=== PATIENT | female | born 1955 | race Caucasian/White ===

== ENCOUNTER 2016-07-03 15:09 | Inpatient (IN) | payer OTHER ==
[2016-07-03] MEDS ORDERED: ALBUTEROL/IPRATROPIUM 2.5/0.5 MG 3 ML/EACH DOSE ONE (15:26)
[2016-07-03 15:50] LABS: BASO # 0.1 K/mm3 (0.0-0.2); BASO % 0.5 % (0.2-1.0); EOS # 0.2 (0.0-0.5); EOS % 2.2 % (0.9-2.9); HEMATOCRIT 47.2 % (37.0-47.0); HEMOGLOBIN 14.5 gm/l (12.0-16.0); IMM NEUT # 0.1 K/mm3 (0-0.2); IMM NEUT% 0.6 % (0-1); LYMPH # 2.9 (1.0-4.8); LYMPH % 26.4 % (15-45); MEAN CELL VOLUME 92.7 fl (81.0-99.0); MEAN CORPUSCULAR HEMOGLOBIN 28.5 pg (27.0-31.0); MEAN CORPUSCULAR HGB CONC 30.7 g/dl (33.0-37.0); MEAN PLATELET VOLUME 10.1 fl (7.4-10.4); MONO # 0.7 (0.0-0.8); MONO % 6.7 % (4-12); NEUT % 63.6 % (43-75); PLATELET COUNT 216 K/mm3 (130-400); RED CELL DISTRIBUTION WIDTH 14.6 % (11.5-14.5)
[2016-07-03 16:04] LABS: TROPONIN I < 0.01 ng/ml (0.0-0.06)
[2016-07-03 16:09] LABS: CKMB ISOENZYME 1.1 ng/ml (0.6-6.3)
--- NOTE | 2016-07-03 16:17 | RAD ---
CHEST - 2 VIEWS COMPARISON: Chest 2 views, 01/05/2016 HISTORY: Dyspnea and cough FINDINGS: Views: Frontal and lateral chest Lungs: Scattered opacities in the middle third and lower third of the left lung. Heart and vessels: Cardiomegaly. Trachea and bronchi: Normal Mediastinum and kevyn: Normal Costophrenic sulci: Normal Chest wall and bones: Normal. Upper abdomen: Normal Neck: Partially metallic medical records technician projects over the midline at the inferior neck. IMPRESSION: Infiltrates in the middle third and lower third of left lung, evidence of pneumonia.
[2016-07-03] MEDS ORDERED: AZITHROMYCIN 500 MG VIAL ONE (16:42)
[2016-07-03] MEDS ORDERED: METHYLPRED SOD SUCCINATE 125 MG VIAL ONE (16:42)
[2016-07-03] MEDS ORDERED: SODIUM CHLORIDE 0.9% 250 ML IV ONE (16:43)
[2016-07-03] MEDS ORDERED: CEFTRIAXONE 1 GRAM DUPLEX 50 ML IV ONE (16:43)
[2016-07-03 16:58] LABS: ALB/GLOB RATIO 1.2 (>1.0); CALCIUM 9.5 mg/dL (8.6-10.3)
[2016-07-03] MEDS ORDERED: BLISTEX LIPSTICK 1 EACH TP PRN (18:30)
[2016-07-03] MEDS ORDERED: BISACODYL 5 MG TABLET.EC PO PRN (18:30)
[2016-07-03] MEDS ORDERED: BISACODYL 10 MG SUP PR PRN (18:30)
[2016-07-03] MEDS ORDERED: MAGNESIUM HYDROXIDE 30 ML UDCUP PO PRN (18:30)
[2016-07-03] MEDS ORDERED: ALBUTEROL NEB 2.5 MG/3 ML VIAL.NEB NEB PRN (18:30)
[2016-07-03] MEDS ORDERED: MENTHOL/CETYLPYRD 1 EACH LOZENGE PO PRN (18:30)
[2016-07-03 18:43] VITALS: BMI 43.7
[2016-07-03] MEDS ORDERED: PSEUDOEPHEDRINE HCL 30 MG TABLET PO PRN (19:16)
[2016-07-03] MEDS ORDERED: NITROGLYCERIN 0.4 MG/TAB.SUBL BOT SL PRN (19:16)
[2016-07-03] MEDS: ISOSORBIDE MONONITRATE 60 MG TAB.SR PO SCH (20:51)
[2016-07-03] MEDS: ENOXAPARIN SODIUM 40 MG/0.4 ML SYRINGE SUB-Q SCH (20:52)
[2016-07-03] MEDS: ALBUTEROL/IPRATROPIUM 2.5/0.5 MG 3 ML/EACH DOSE NEB SCH (21:10)
[2016-07-03] MEDS: INSULIN ASPART (DOSE) 100 UNITS/1 ML SUB-Q PRN (21:15)
[2016-07-04] MEDS: DOCUSATE SODIUM 100 MG CAPSULE PO SCH ×3 (00:43→20:59)
[2016-07-04 05:19] LABS: ABSOLUTE NEUTROPHIL COUNT 7.2 K/mm3 (1.8-7.7); BASO % 0.3 % (0.2-1.0); EOS % 0.1 % (0.9-2.9); HEMATOCRIT 43.8 % (37.0-47.0); HEMOGLOBIN 13.6 gm/l (12.0-16.0); IMM NEUT # 0.1 K/mm3 (0-0.2); LYMPH # 1.6 (1.0-4.8); LYMPH % 17.6 % (15-45); MEAN CELL VOLUME 90.9 fl (81.0-99.0); MEAN CORPUSCULAR HEMOGLOBIN 28.2 pg (27.0-31.0); MEAN CORPUSCULAR HGB CONC 31.1 g/dl (33.0-37.0); MEAN PLATELET VOLUME 10.1 fl (7.4-10.4); MONO # 0.2 (0.0-0.8); PLATELET COUNT 225 K/mm3 (130-400); RED CELL DISTRIBUTION WIDTH 14.2 % (11.5-14.5)
[2016-07-04 05:38] LABS: CALCIUM 9.3 mg/dL (8.6-10.3)
--- NOTE | 2016-07-04 06:49 | HP ---
Scarlet Rahman [id number] DATE: 07/03/2016 CHIEF COMPLAINT: Dyspnea. HISTORY OF PRESENT ILLNESS: The patient is a 60-year-old female with a one week history of cough. She was seen by her primary care provider about a week ago and was prescribed a Z-Lorne which she finished, but her symptoms failed to improved. She reports her cough is productive of clear phlegm. She has had some wheezing and some substernal chest pain with a cough worse with deep breathing, which is unlike her usual angina pain. She was evaluated in the emergency department and found to have oxygen saturations down to 78% on room air. She eventually stabilized on 4 liters of oxygen by nasal cannula. REVIEW OF SYSTEMS: Negative for any documented fever. She reports hot flashes which are chronic. She has had some chronic nasal congestion. She denies earache. She has had the cough and dyspnea as I mentioned with wheezing. She has had no orthopnea. No lower extremity edema. She denies any nausea, vomiting, abdominal pain, diarrhea, or constipation. She denies any arthralgias. No headaches, fainting, blackouts, or seizures. No urinary complaints. Her review of systems is otherwise negative. PAST MEDICAL HISTORY: Significant for chronic essential hypertension, she states she has been under treatment for about a year for this. She has adult onset diabetes also diagnosed about a year ago on oral medications. She reports a history of coronary artery disease and has been followed by [facility]. She had a myocardial perfusion study in December of this year showing a fixed defect in the anterior wall, but no reversible ischemia. Her ejection fraction was 56% at that time. She since had a coronary angiogram, the results are not available. She has chronic angina, but has only used her nitroglycerin about once a month, it has improved with long acting nitrates. She is followed by [facility]. She has a history of asthma as a child, moderate persistent asthma. She has a history of chronic respiratory failure on home oxygen therapy at 2.5 liters by nasal cannula and obstructive sleep apnea on CPAP therapy set a 9 cm of water. She has a history of morbid obesity which complaints her care. She has had a history of some chronic depression, which is stable on medications. She denies any other chronic medical problems. PAST SURGICAL HISTORY: Significant for an angiogram sometime in the last year since December at [facility], results not available, followed by [place]. She has had a prior lumbar spine surgery x2 and C-spine surgery X1, details not available. She has had right elbow surgery for calcification in the joint in 1977 and a umbilical hernia repair by Dr. Albert Mondragon back in 2012. She had a colonoscopy in March 2012 with hyperplastic polyps removed. Also she had a tonsillectomy as a child. ALLERGIES: DOCUMENTED TO PENICILLIN, CODEINE, AND NIACIN. CURRENT MEDICATIONS: Consist of: 1. Amlodipine 10 mg daily. 2. Januvia 100 mg daily. 3. Lopressor 50 mg once daily. 4. Amaryl 1 mg daily. 5. Sudafed 30 mg every 6 hours as needed for nasal congestion. 6. Isosorbide mononitrate extended release 120 mg twice a day. 7. Enteric coated aspirin 325 mg daily. 8. Albuterol meter dose inhaler 1 to 2 puffs every 4 hours as needed for wheezing. 9. Metformin 1000 mg twice daily. 10. Lexapro 20 mg daily. 11. Nitroglycerin 0.4 mg sublingual every 5 minutes as needed for chest pain. 12. Singulair 10 mg daily. FAMILY HISTORY: Significant for a father with a myocardial infarction at the age of 62. Her mother of unknown causes at the age of 63. Her brother had coronary artery disease and lymphoma it sounds like. SOCIAL HISTORY: Patient is . She is a former smoker of about 30 pack years. She quit in the year 1999. She denies alcohol use. She drinks about 3 cups of coffee a day. She has one adopted son. Her primary care provider is Dr. Zaki Hayes. PHYSICAL EXAMINATION: VITAL SIGNS: Weight is 108.4 kg, body mass index is 43.7, temperature is 98.4, pulse is 91, blood pressure 137/79, respirations 27, oxygen saturations are 88% on 5 liters by nasal cannula. GENERAL: This is an obese female who is in no acute distress speaking in full sentences. HEENT: Shows moist pink oral mucosa. NECK: Supple without lymphadenopathy, thyromegaly, or jugular venous distention. LUNGS: Lungs sounds are diminished throughout with some scattered rhonchi and occasional expiratory wheezes. CARDIOVASCULAR: Reveals a regular rate and rhythm without a murmur. ABDOMEN: Obese, soft, nontender, nondistended with positive bowel sounds. PELVIC: Deferred. RECTAL: Deferred. EXTREMITIES: Show no peripheral edema. SKIN: Warm, dry, and intact. NEURO: Nonfocal. She is alert and oriented x3. LABORATORY STUDIES: Show a white count elevated at 11,000, hemoglobin is 14.5, platelet count is 216,000. Lactate is normal at 1.2. Chemistry profile shows a sodium 139, potassium 3.9, carbon dioxide 37, BUN 12, creatinine 0.6, glucose 124. Liver function tests are normal. Cardiac enzymes are negative. Urinalysis was not performed. DIAGNOSTICS: Chest x-ray shows infiltrates in the middle third and lower third of the left lung. There is cardiomegaly. ASSESSMENT AND PLAN: Patient has community acquired bacterial pneumonia. She failed treatment with Zithromax. She is having worsening dyspnea symptoms. She has acute on chronic respiratory failure. She had chronic obstructive sleep apnea treated with CPAP therapy. She has morbid obesity which complaints her care. She has a history of coronary artery disease with stable angina involving the pamunkey vessels. She has adult onset diabetes not on insulin. She has chronic essential hypertension. She is admitted to the intermediate care unit due to her significant hypoxia. She is going to be treated with Rocephin and Zithromax. She will get albuterol and DuoNeb treatments as needed. Will consider prednisone if her wheezing is worsening. Blood cultures are pending. She will be put on sliding scale NovoLog and I will continue her usual medications except for the metformin. Would like to confirm her isosorbide dose as it is usually a once a day dosing and she states she is taking twice daily. [facility] closed. The list from Dr. Hayes's office did not indicate the frequency of the dosing. Deep thromboembolism risk is moderate and prophylaxis has been prescribed in the form of Lovenox. She has had some chronic depression, stable on Lexapro, will continue this. Further treatment and recommendations will depend on her hospital course. Will work to determine if she has had a pneumonia vaccine, if not she will be vaccinated. Also work to determine if she has had the flu vaccination, if not she will be offered a vaccination. JOB: [id number] CC: Dr. Zaki Hayes
[2016-07-04] MEDS ORDERED: GLIMEPIRIDE 2 MG TABLET PO SCH (09:00)
[2016-07-04] MEDS ORDERED: PNEUMOCOCCAL 23-VAL P-SAC VAC 0.5 ML VIAL IM V ONE (09:00)
[2016-07-04] MEDS: ALBUTEROL/IPRATROPIUM 2.5/0.5 MG 3 ML/EACH DOSE NEB SCH ×4 (10:36→20:35)
[2016-07-04] MEDS: MONTELUKAST SODIUM 10 MG TABLET PO SCH (10:47)
[2016-07-04] MEDS: ASPIRIN (ENTERIC COATED) 325 MG TABLET.EC PO SCH (10:47)
[2016-07-04] MEDS: AMLODIPINE BESYLATE 5 MG TABLET PO SCH (10:48)
[2016-07-04] MEDS: SITAGLIPTIN PHOSPHATE 100 MG TABLET PO SCH (10:48)
[2016-07-04] MEDS: ISOSORBIDE MONONITRATE 60 MG TAB.SR PO SCH ×2 (10:48→20:58)
[2016-07-04] MEDS: METOPROLOL TARTRATE 50 MG TABLET PO SCH (10:48)
[2016-07-04] MEDS: INSULIN ASPART (DOSE) 100 UNITS/1 ML SUB-Q PRN (10:53)
--- NOTE | 2016-07-04 11:15 | PDOC43 ---
- Subjective Chief Complaint: Hypoxia, CAP Patient reports feeling much better today. Currently on 5L NC, sats ranging from 80-95%. Was able to eat breakfast. No new respiratory c/o. Bothered some by ICDs, but otherwise ok. No angina (this week). - Objective Vital Signs Temperature 97.9 F 07/04/16 09:11 Pulse Rate 95 07/04/16 09:11 Respiratory Rate 21 07/04/16 09:11 Blood Pressure 153/90 07/04/16 09:11 O2 Saturation by Pulse Oximetry 91 07/04/16 09:11 Oxygen Delivery Method CPAP Oxygen Flow Rate 5 Vital Signs Last 12 Hours Temp Pulse Resp BP Pulse Ox 07/04/16 09:11 97.9 F 95 21 153/90 91 07/04/16 04:00 96.9 F 100 22 137/86 88 07/04/16 03:00 19 Intake and Output 07/02/16 07/03/16 07/04/16 23:59 23:59 23:59 Intake Total 1000 Balance 1000 General: Alert, Cooperative, Other (loose cough noted), No Acute Distress Lungs: Other (decreased air movement bilat. Some rhonchi, sl wheezing noted bilat.) Cardiovascular: Regular Rate and Rhythm Abdomen: Soft, Normal Bowel Sounds, Non-Distended, Other (central obesity), No Tenderness, No Rebounding Extremities: No Edema, No Tenderness Skin: Normal Color Neurological: Normal Speech Psych/Mental Status: Normal Affect Laboratory 07/04/16 05:10 07/04/16 05:10 07/04/16 07/04/16 07/03/16 10:45 05:10 21:07 MCHC 31.1 L Estimated GFR 126 H POC Capillary Glucose 155 H 241 H 07/03/16 18:43 MCHC Estimated GFR POC Capillary Glucose 111 H Current Medications: Current meds reviewed in EMR. Active Medications Acetaminophen (Tylenol) 650 mg PO Q6H PRN PRN Reason: Pain or Temperature > 100.5 F Albuterol Sulfate (Ventolin Inhalation Solution (Dose)) 2.5 mg NEB Q4H PRN PRN Reason: Wheezing Albuterol/Ipratropium (Duoneb) 3 ml NEB QID [facility] Last Admin: 07/04/16 10:36 Dose: 3 ml Amlodipine Besylate (Norvasc) 10 mg PO DAILY [facility] Last Admin: 07/04/16 10:48 Dose: 10 mg Aspirin (Ecotrin) 325 mg PO DAILY [facility] Last Admin: 07/04/16 10:47 Dose: 325 mg Benzocaine/Menthol (Cepacol) 1 each PO PRN PRN PRN Reason: Sore Throat Bisacodyl (Dulcolax) 10 mg [place] DAILY PRN PRN Reason: Constipation Bisacodyl (Dulcolax) 5 mg PO DAILY PRN PRN Reason: Constipation Docusate Sodium (Colace) 100 mg PO BID [facility] Last Admin: 07/04/16 10:48 Dose: 100 mg Enoxaparin Sodium (Lovenox) 40 mg SUB-Q Q24H [facility] Last Admin: 07/03/16 20:52 Dose: 40 mg Escitalopram Oxalate (Lexapro) 20 mg PO DAILY [facility] Glimepiride (Amaryl) 1 mg PO QAM [facility] Last Admin: 07/04/16 10:49 Dose: 1 mg Azithromycin 500 mg/ Sodium (Chloride) 250 mls @ 250 mls/hr IV Q24H [facility] Stop: 07/05/16 17:59 Ceftriaxone Sodium/Dextrose 1 (g/ Premix (D5W) 50 ml) 50 mls @ 100 mls/hr IV Q24H [facility] Sodium Chloride (Sodium Chloride 0.9%) 100 mls @ 25 mls/hr IV PRN PRN PRN Reason: Flush Insulin Aspart (Novolog (Dose)) 0 units SUB-Q WM/BEDTIME PRN; Protocol PRN Reason: Blood Sugar > Last Admin: 07/04/16 10:53 Dose: 3 units Isosorbide Mononitrate (Imdur) 120 mg PO BID [facility] Last Admin: 07/04/16 10:48 Dose: 120 mg Magnesium Hydroxide (Milk Of Magnesia) 30 ml PO DAILY PRN PRN Reason: Constipation Metoprolol Tartrate (Lopressor) 50 mg PO DAILY [facility] Last Admin: 07/04/16 10:48 Dose: 50 mg Montelukast Sodium (Singulair) 10 mg PO DAILY [facility] Last Admin: 07/04/16 10:47 Dose: 10 mg Nitroglycerin (Nitrostat) 0.4 mg SL Q5M PRN PRN Reason: Chest Pain Petrolatum/Paraffin/Mineral Oil (Blistex) 1 each TP PRN PRN PRN Reason: Dry and/or chapped lips Pseudoephedrine HCl (Sudafed) 30 mg PO Q6H PRN PRN Reason: Congestion Sitagliptin Phosphate (Januvia) 100 mg PO DAILY [facility] Last Admin: 07/04/16 10:48 Dose: 100 mg Sodium Chloride (Normal Saline 10ml Flush) 10 ml IV Q8HR [facility] Last Admin: 07/04/16 10:48 Dose: 10 ml Sodium Chloride (Normal Saline 10ml Flush) 10 ml IV PRN PRN - Problems: Assessment/Plan (1) Community acquired bacterial pneumonia Status: AcuteAssessment/Plan: Present on admit. With respiratory failure with hypoxia, needing O2, CPAP; but improved today. Organism not identified yet. Blood cultures negative so far. On Rocephin, azithromycin using CPAP, O2 as well (doesn't use O2 at home normally). Plan continue in IMCU for now with degree of hypoxia. (2) Sleep apnea Qualifiers: Sleep apnea type: unspecified type Qualifier Code: (G47.30) Sleep apnea , unspecified Status: ChronicAssessment/Plan: Uses CPAP at home at night. (3) Diabetes mellitus, type II Qualifiers: Diabetes mellitus complication status: with unspecified complications Diabetes mellitus chcf insulin use: without hanger off use Qualifier Code: (E11.8) Type 2 diabetes mellitus with unspecified complications Status : ChronicAssessment/Plan: Glucose 111-242 recently. BG may be raised by dose of Solu Medrol (dosed x 1). Continue Januvia, Novolog SS. (4) Asthma Qualifiers: Asthma severity: unspecified severity Asthma complication type: uncomplicated Qualifier Code: (J45.909) Unspecified asthma, uncomplicated Status: AcuteAssessment/Plan: Continue meds (montelukast, duoneb) Did get dose of steroids in ED, but currently respiratory status felt to be more due to CAP rather than acute worsening of asthma. (5) History of angina Status: ChronicAssessment/Plan: Continue meds (Imdur, metoprolol, amlodipine); troponin <0.01. No angina reported at this time. Did have some last week. (6) Chronic neck and back pain Status: ChronicAssessment/Plan: Not otherwise addressed. VTE Prophylaxis: Enoxaparin Disposition: Anticipate return to home eventually. Will plan to stay in IMCU while needing CPAP to maintain oxygenation.
[2016-07-04] MEDS ORDERED: SODIUM CHLORIDE 0.9% FLUSH 10 ML ONE (16:10)
[2016-07-04] MEDS ORDERED: IV START KIT ONE (16:10)
[2016-07-04] MEDS ORDERED: PUMP TUBING ONE (16:29)
[2016-07-04] MEDS: SODIUM CHLORIDE 0.9% 100 ML IV PRN (16:43)
[2016-07-04] MEDS: CEFTRIAXONE 1 GRAM DUPLEX 1 G in Premix (D5W) 50 ml 1 EACH IV SCH (16:44)
[2016-07-04] MEDS: AZITHROMYCIN 500 MG in SODIUM CHLORIDE 0.9% 250 ML IV SCH (17:36)
[2016-07-04] MEDS: ENOXAPARIN SODIUM 40 MG/0.4 ML SYRINGE SUB-Q SCH (20:58)
[2016-07-05 07:36] LABS: ABSOLUTE NEUTROPHIL COUNT 6.8 K/mm3 (1.8-7.7); BASO # 0.1 K/mm3 (0.0-0.2); BASO % 0.5 % (0.2-1.0); EOS # 0.2 (0.0-0.5); EOS % 1.3 % (0.9-2.9); HEMATOCRIT 45.6 % (37.0-47.0); IMM NEUT # 0.1 K/mm3 (0-0.2); IMM NEUT% 0.4 % (0-1); LYMPH # 3.8 (1.0-4.8); LYMPH % 32.8 % (15-45); MEAN CELL VOLUME 92.5 fl (81.0-99.0); MEAN CORPUSCULAR HEMOGLOBIN 28.4 pg (27.0-31.0); MEAN CORPUSCULAR HGB CONC 30.7 g/dl (33.0-37.0); MEAN PLATELET VOLUME 9.6 fl (7.4-10.4); MONO # 0.8 (0.0-0.8); MONO % 6.6 % (4-12); NEUT % 58.4 % (43-75); PLATELET COUNT 235 K/mm3 (130-400); RED CELL DISTRIBUTION WIDTH 14.7 % (11.5-14.5)
[2016-07-05 07:59] LABS: CALCIUM 9.1 mg/dL (8.6-10.3)
[2016-07-05 08:04] LABS: VENOUS BLOOD GAS HCO3 34.3 mmol/L (22.0-27.0)
[2016-07-05 08:05] LABS: VENOUS BLOOD GAS BASE EXCESS 6.5 mmol/L (-2.0-2.0)
--- NOTE | 2016-07-05 08:37 | PDOC43 ---
- Subjective Chief Complaint: Hypoxia, CAP RN reports pt improving. Is on 5L NC and sats about 91%. Gets SOB with activity. Nestor PO well. Using CPAP at night (for sleep apnea). Pt reports appetite good, ate well this am. Cough productive, getting better. No GI c/o. Notes limited activity tolerance. - Objective Vital Signs Temperature 98.0 F 07/05/16 07:07 Pulse Rate 89 07/05/16 07:07 Respiratory Rate 22 07/05/16 07:19 Blood Pressure 136/72 07/05/16 07:07 O2 Saturation by Pulse Oximetry 92 07/05/16 08:00 Oxygen Delivery Method Nasal Cannula Oxygen Flow Rate 5 Vital Signs Last 12 Hours Temp Pulse Resp BP Pulse Ox 07/05/16 08:00 92 07/05/16 07:19 22 92 07/05/16 07:15 22 07/05/16 07:07 98.0 F 89 22 136/72 89 07/05/16 04:00 23 07/05/16 03:00 87 21 142/73 90 07/05/16 00:00 23 07/04/16 23:37 83 23 123/68 94 07/04/16 20:35 87 22 90 Intake and Output 07/03/16 07/04/16 07/05/16 23:59 23:59 23:59 Intake Total 1580 1300 Balance 1580 1300 General: Alert, Cooperative, No Acute Distress HEENT: Atraumatic Lungs: Other (fair air movement bilat. Coarse wheezing bilat) Cardiovascular: Regular Rate and Rhythm Abdomen: Soft, Normal Bowel Sounds, Non-Distended Extremities: No Edema Skin: Normal Color Neurological: No Normal Speech Psych/Mental Status: Normal Affect, Normal Mood Laboratory 07/05/16 07:30 07/05/16 07:30 07/05/16 07/05/16 07/05/16 07:30 07:18 05:00 MCHC 30.7 L RDW 14.7 H VBG O2 Saturation 91.5 H VBG Base Excess 6.5 H Mixed VBG pCO2 62.7 H Mixed VBG pO2 61.6 H Mixed VBG HCO3 34.3 H Estimated GFR 102 H POC Capillary Glucose 115 H 07/04/16 07/04/16 22:04 10:45 MCHC RDW VBG O2 Saturation VBG Base Excess Mixed VBG pCO2 Mixed VBG pO2 Mixed VBG HCO3 Estimated GFR POC Capillary Glucose 114 H 155 H Current Medications: Current meds reviewed in EMR. Active Medications Acetaminophen (Tylenol) 650 mg PO Q6H PRN PRN Reason: Pain or Temperature > 100.5 F Albuterol Sulfate (Ventolin Inhalation Solution (Dose)) 2.5 mg NEB Q4H PRN PRN Reason: Wheezing Albuterol/Ipratropium (Duoneb) 3 ml NEB QID [facility] Last Admin: 07/04/16 20:35 Dose: 3 ml Amlodipine Besylate (Norvasc) 10 mg PO DAILY [facility] Last Admin: 07/04/16 10:48 Dose: 10 mg Aspirin (Ecotrin) 325 mg PO DAILY [facility] Last Admin: 07/04/16 10:47 Dose: 325 mg Benzocaine/Menthol (Cepacol) 1 each PO PRN PRN PRN Reason: Sore Throat Bisacodyl (Dulcolax) 10 mg [place] DAILY PRN PRN Reason: Constipation Bisacodyl (Dulcolax) 5 mg PO DAILY PRN PRN Reason: Constipation Docusate Sodium (Colace) 100 mg PO BID [facility] Last Admin: 07/04/16 20:59 Dose: Not Given Enoxaparin Sodium (Lovenox) 40 mg SUB-Q Q24H [facility] Last Admin: 07/04/16 20:58 Dose: 40 mg Escitalopram Oxalate (Lexapro) 20 mg PO DAILY [facility] Glimepiride (Amaryl) 1 mg PO QAM [facility] Azithromycin 500 mg/ Sodium (Chloride) 250 mls @ 250 mls/hr IV Q24H [facility] Stop: 07/05/16 17:59 Last Admin: 07/04/16 17:36 Dose: 250 mls/hr Ceftriaxone Sodium/Dextrose 1 (g/ Premix (D5W) 50 ml) 50 mls @ 100 mls/hr IV Q24H [facility] Last Admin: 07/04/16 16:44 Dose: 100 mls/hr Sodium Chloride (Sodium Chloride 0.9%) 100 mls @ 25 mls/hr IV PRN PRN PRN Reason: Flush Last Admin: 07/04/16 16:43 Dose: 25 mls/hr Insulin Aspart (Novolog (Dose)) 0 units SUB-Q WM/BEDTIME PRN; Protocol PRN Reason: Blood Sugar > Last Admin: 07/04/16 10:53 Dose: 3 units Isosorbide Mononitrate (Imdur) 120 mg PO BID [facility] Last Admin: 07/04/16 20:58 Dose: 120 mg Magnesium Hydroxide (Milk Of Magnesia) 30 ml PO DAILY PRN PRN Reason: Constipation Metoprolol Tartrate (Lopressor) 50 mg PO DAILY [facility] Last Admin: 07/04/16 10:48 Dose: 50 mg Montelukast Sodium (Singulair) 10 mg PO DAILY [facility] Last Admin: 07/04/16 10:47 Dose: 10 mg Nitroglycerin (Nitrostat) 0.4 mg SL Q5M PRN PRN Reason: Chest Pain Petrolatum/Paraffin/Mineral Oil (Blistex) 1 each TP PRN PRN PRN Reason: Dry and/or chapped lips Pseudoephedrine HCl (Sudafed) 30 mg PO Q6H PRN PRN Reason: Congestion Sitagliptin Phosphate (Januvia) 100 mg PO DAILY [facility] Last Admin: 07/04/16 10:48 Dose: 100 mg Sodium Chloride (Normal Saline 10ml Flush) 10 ml IV Q8HR [facility] Last Admin: 07/05/16 06:18 Dose: Not Given Sodium Chloride (Normal Saline 10ml Flush) 10 ml IV PRN PRN Last Admin: 07/04/16 16:44 Dose: 30 ml - Problems: Assessment/Plan (1) Community acquired bacterial pneumonia Status: AcuteAssessment/Plan: Present on admit. With respiratory failure with hypoxia, needing O2 during day at 5L, CPAP at night; but continues to improve. Organism not identified yet. Blood cultures still negative On Rocephin, azithromycin Doesn't use O2 at home during day, uses 2.5 L with CPAP at night. (2) Sleep apnea Qualifiers: Sleep apnea type: unspecified type Qualifier Code: (G47.30) Sleep apnea , unspecified Status: ChronicAssessment/Plan: Uses CPAP at home at night with 2.5 L O2. (3) Diabetes mellitus, type II Qualifiers: Diabetes mellitus complication status: with unspecified complications Diabetes mellitus mcc insulin use: without mcc use Qualifier Code: (E11.8) Type 2 diabetes mellitus with unspecified complications Status : ChronicAssessment/Plan: Glucose 111-242 recently. BG may be raised by dose of Solu Medrol (dosed x 1). Continue Januvia, Novolog SS. (4) Asthma Qualifiers: Asthma severity: unspecified severity Asthma complication type: uncomplicated Qualifier Code: (J45.909) Unspecified asthma, uncomplicated Status: AcuteAssessment/Plan: Continue meds (montelukast, duoneb) Did get dose of steroids in ED, but currently respiratory status felt to be more due to CAP rather than acute worsening of asthma. (5) History of angina Status: ChronicAssessment/Plan: Continue meds (Imdur, metoprolol, amlodipine); troponin <0.01. No angina reported at this time. Did have some last week. BNP 23 today. (6) Chronic neck and back pain Status: ChronicAssessment/Plan: Not otherwise addressed. VTE Prophylaxis: Enoxaparin Disposition: Anticipate return to home eventually. Plan go to med/surg
[2016-07-05] MEDS: METOPROLOL TARTRATE 50 MG TABLET PO SCH (08:45)
[2016-07-05] MEDS: ALBUTEROL/IPRATROPIUM 2.5/0.5 MG 3 ML/EACH DOSE NEB SCH ×4 (08:45→20:06)
[2016-07-05] MEDS: ASPIRIN (ENTERIC COATED) 325 MG TABLET.EC PO SCH (08:45)
[2016-07-05] MEDS: ISOSORBIDE MONONITRATE 60 MG TAB.SR PO SCH ×2 (08:45→20:49)
[2016-07-05] MEDS: AMLODIPINE BESYLATE 5 MG TABLET PO SCH (08:46)
[2016-07-05] MEDS: MONTELUKAST SODIUM 10 MG TABLET PO SCH (08:46)
[2016-07-05] MEDS: SITAGLIPTIN PHOSPHATE 100 MG TABLET PO SCH (08:46)
[2016-07-05] MEDS: DOCUSATE SODIUM 100 MG CAPSULE PO SCH ×2 (08:46→20:49)
[2016-07-05] MEDS: GLIMEPIRIDE 1 MG TABLET PO SCH (09:17)
[2016-07-05 12:38] LABS: A1C-GLYCOHEMOGLOBIN 0.7 g/dl; HEMOGLOBIN-GLYCO 13.6 g/dl
[2016-07-05] MEDS ORDERED: PUMP TUBING ONE (16:40)
[2016-07-05] MEDS: SODIUM CHLORIDE 0.9% 100 ML IV PRN (16:58)
[2016-07-05] MEDS: CEFTRIAXONE 1 GRAM DUPLEX 1 G in Premix (D5W) 50 ml 1 EACH IV SCH (16:58)
[2016-07-05] MEDS: AZITHROMYCIN 500 MG in SODIUM CHLORIDE 0.9% 250 ML IV SCH (17:47)
[2016-07-05] MEDS ORDERED: SODIUM CHLORIDE 0.9% FLUSH 10 ML ONE (18:58)
[2016-07-05] MEDS ORDERED: IV START KIT ONE (18:58)
[2016-07-05] MEDS: ENOXAPARIN SODIUM 40 MG/0.4 ML SYRINGE SUB-Q SCH (20:49)
[2016-07-05] MEDS: MELATONIN 3 MG TABLET PO SCH (20:49)
[2016-07-06] MEDS: ACETAMINOPHEN 325 MG TABLET PO PRN (06:00)
[2016-07-06 06:52] LABS: BASO % 0.5 % (0.2-1.0); EOS # 0.2 (0.0-0.5); EOS % 2.3 % (0.9-2.9); HEMATOCRIT 45.4 % (37.0-47.0); HEMOGLOBIN 13.9 gm/l (12.0-16.0); IMM NEUT% 0.3 % (0-1); LYMPH # 1.9 (1.0-4.8); LYMPH % 21.5 % (15-45); MEAN CORPUSCULAR HEMOGLOBIN 28.5 pg (27.0-31.0); MEAN CORPUSCULAR HGB CONC 30.6 g/dl (33.0-37.0); MEAN PLATELET VOLUME 9.7 fl (7.4-10.4); MONO # 0.6 (0.0-0.8); NEUT % 68.4 % (43-75); PLATELET COUNT 233 K/mm3 (130-400); RED CELL DISTRIBUTION WIDTH 14.5 % (11.5-14.5)
[2016-07-06 07:12] LABS: ALB/GLOB RATIO 1.1 (>1.0); ALBUMIN 3.7 gm/dL (3.5-5.7)
[2016-07-06] MEDS: ALBUTEROL/IPRATROPIUM 2.5/0.5 MG 3 ML/EACH DOSE NEB SCH ×5 (07:44→20:18)
[2016-07-06] MEDS: METOPROLOL TARTRATE 50 MG TABLET PO SCH (09:13)
[2016-07-06] MEDS: ISOSORBIDE MONONITRATE 60 MG TAB.SR PO SCH ×2 (09:13→20:59)
[2016-07-06] MEDS: AMLODIPINE BESYLATE 5 MG TABLET PO SCH (09:13)
[2016-07-06] MEDS: MONTELUKAST SODIUM 10 MG TABLET PO SCH (09:13)
[2016-07-06] MEDS: DOCUSATE SODIUM 100 MG CAPSULE PO SCH ×2 (09:13→20:59)
[2016-07-06] MEDS: ESCITALOPRAM 20 MG TABLET PO SCH (09:13)
[2016-07-06] MEDS: GLIMEPIRIDE 1 MG TABLET PO SCH (09:14)
[2016-07-06] MEDS: ASPIRIN (ENTERIC COATED) 325 MG TABLET.EC PO SCH (09:14)
[2016-07-06] MEDS: SITAGLIPTIN PHOSPHATE 100 MG TABLET PO SCH (09:14)
[2016-07-06] MEDS: CEFTRIAXONE 1 GRAM DUPLEX 1 G in Premix (D5W) 50 ml 1 EACH IV SCH (16:05)
--- NOTE | 2016-07-06 16:29 | PDOC43 ---
- Subjective Chief Complaint: Hypoxia, CAP Patient reports doing well. No c/o, but still on O2. RN reports pt tolerated activity fairly well, but does desat, seems to recover well. No GI c/o. No other c/o. She reports she would be eager to go home. - Objective Vital Signs Temperature 98 F 07/06/16 12:00 Pulse Rate 75 07/06/16 12:54 Respiratory Rate 18 07/06/16 12:54 Blood Pressure 121/73 07/06/16 12:00 O2 Saturation by Pulse Oximetry 92 07/06/16 12:54 Oxygen Delivery Method Nasal Cannula Oxygen Flow Rate 3 Vital Signs Last 12 Hours Temp Pulse Resp BP Pulse Ox 07/06/16 12:54 75 18 92 07/06/16 12:00 98 F 78 20 121/73 95 07/06/16 08:30 97.6 F 107 20 117/83 92 07/06/16 07:44 94 18 91 07/06/16 06:01 96 Intake and Output 07/04/16 07/05/16 07/06/16 23:59 23:59 23:59 Intake Total 1580 3115 300 Output Total 1100 Balance 1580 3115 -800 General: Alert, Cooperative, No Acute Distress HEENT: Atraumatic Lungs: Other (wheezes bilat, fair air movement bilat.) Cardiovascular: Regular Rate and Rhythm Abdomen: Soft, Normal Bowel Sounds, Non-Distended Extremities: No Edema Skin: Normal Color Neurological: Normal Speech Psych/Mental Status: Normal Affect, Normal Mood Laboratory 07/06/16 06:30 07/06/16 06:30 07/06/16 07/06/16 07/05/16 07:08 06:30 20:44 MCHC 30.6 L Estimated GFR 126 H POC Capillary Glucose 122 H 116 H 07/05/16 17:01 MCHC Estimated GFR POC Capillary Glucose 124 H Current Medications: Current meds reviewed in EMR. Active Medications Acetaminophen (Tylenol) 650 mg PO Q6H PRN PRN Reason: Pain or Temperature > 100.5 F Last Admin: 07/06/16 06:00 Dose: 650 mg Albuterol Sulfate (Ventolin Inhalation Solution (Dose)) 2.5 mg NEB Q4H PRN PRN Reason: Wheezing Albuterol/Ipratropium (Duoneb) 3 ml NEB QID JON Last Admin: 07/06/16 12:54 Dose: 3 ml Amlodipine Besylate (Norvasc) 10 mg PO DAILY [facility] Last Admin: 07/06/16 09:13 Dose: 10 mg Aspirin (Ecotrin) 325 mg PO DAILY [facility] Last Admin: 07/06/16 09:14 Dose: 325 mg Benzocaine/Menthol (Cepacol) 1 each PO PRN PRN PRN Reason: Sore Throat Bisacodyl (Dulcolax) 10 mg AR DAILY PRN PRN Reason: Constipation Bisacodyl (Dulcolax) 5 mg PO DAILY PRN PRN Reason: Constipation Docusate Sodium (Colace) 100 mg PO BID [facility] Last Admin: 07/06/16 09:13 Dose: 100 mg Enoxaparin Sodium (Lovenox) 40 mg SUB-Q Q24H [facility] Last Admin: 07/05/16 20:49 Dose: 40 mg Escitalopram Oxalate (Lexapro) 20 mg PO DAILY [facility] Last Admin: 07/06/16 09:13 Dose: 20 mg Glimepiride (Amaryl) 1 mg PO QAM [facility] Last Admin: 07/06/16 09:14 Dose: 1 mg Ceftriaxone Sodium/Dextrose 1 (g/ Premix (D5W) 50 ml) 50 mls @ 100 mls/hr IV Q24H [facility] Last Admin: 07/06/16 16:05 Dose: 100 mls/hr Sodium Chloride (Sodium Chloride 0.9%) 100 mls @ 25 mls/hr IV PRN PRN PRN Reason: Flush Last Admin: 07/05/16 16:58 Dose: 25 mls/hr Insulin Aspart (Novolog (Dose)) 0 units SUB-Q WM/BEDTIME PRN; Protocol PRN Reason: Blood Sugar > Last Admin: 07/04/16 10:53 Dose: 3 units Isosorbide Mononitrate (Imdur) 120 mg PO BID [facility] Last Admin: 07/06/16 09:13 Dose: 120 mg Magnesium Hydroxide (Milk Of Magnesia) 30 ml PO DAILY PRN PRN Reason: Constipation Melatonin (Melatonin) 3 mg PO BEDTIME [facility] Last Admin: 07/05/16 20:49 Dose: 3 mg Metoprolol Tartrate (Lopressor) 50 mg PO DAILY [facility] Last Admin: 07/06/16 09:13 Dose: 50 mg Montelukast Sodium (Singulair) 10 mg PO DAILY [facility] Last Admin: 07/06/16 09:13 Dose: 10 mg Nitroglycerin (Nitrostat) 0.4 mg SL Q5M PRN PRN Reason: Chest Pain Petrolatum/Paraffin/Mineral Oil (Blistex) 1 each TP PRN PRN PRN Reason: Dry and/or chapped lips Pseudoephedrine HCl (Sudafed) 30 mg PO Q6H PRN PRN Reason: Congestion Sitagliptin Phosphate (Januvia) 100 mg PO DAILY [facility] Last Admin: 07/06/16 09:14 Dose: 100 mg Sodium Chloride (Normal Saline 10ml Flush) 10 ml IV Q8HR [facility] Last Admin: 07/06/16 16:06 Dose: 10 ml Sodium Chloride (Normal Saline 10ml Flush) 10 ml IV PRN PRN Last Admin: 07/04/16 16:44 Dose: 30 ml - Problems: Assessment/Plan (1) Community acquired bacterial pneumonia Status: AcuteAssessment/Plan: Present on admit. With respiratory failure with hypoxia, needing O2 during day at 3L, CPAP at night; but continues to improve. Organism not identified. Blood cultures negative On Rocephin, azithromycin Doesn't use O2 at home during day, uses 2.5 L with CPAP at night. (2) Sleep apnea Qualifiers: Sleep apnea type: unspecified type Qualifier Code: (G47.30) Sleep apnea , unspecified Status: ChronicAssessment/Plan: Uses CPAP at home at night with 2.5 L O2. Continue (3) Diabetes mellitus, type II Qualifiers: Diabetes mellitus complication status: with unspecified complications Diabetes mellitus billet grinder insulin use: without mcc use Qualifier Code: (E11.8) Type 2 diabetes mellitus with unspecified complications Status : ChronicAssessment/Plan: Laboratory Tests 07/05/16 07/05/16 07/05/16 12:27 17:01 20:44 Glucose POC Capillary Glucose 111 H 124 H 116 H 07/06/16 07/06/16 07/06/16 06:30 07:08 12:59 Glucose 150 H POC Capillary Glucose 122 H 80 BG had been raised by dose of Solu Medrol (dosed x 1), now better. Continue Januvia, Novolog SS. (4) Asthma Qualifiers: Asthma severity: unspecified severity Asthma complication type: uncomplicated Qualifier Code: (J45.909) Unspecified asthma, uncomplicated Status: AcuteAssessment/Plan: Continue meds (montelukast, duoneb) Did get dose of steroids in ED, but currently respiratory status felt to be more due to CAP rather than acute worsening of asthma. (5) History of angina Status: ChronicAssessment/Plan: Continue meds (Imdur, metoprolol, amlodipine); troponin <0.01. No angina reported at this time. Did have some last week. BNP 23 (6) Chronic neck and back pain Status: ChronicAssessment/Plan: Not otherwise addressed. VTE Prophylaxis: Enoxaparin Disposition: Anticipate return to home, possibly tomorrow, with supplemental O2 (has concentrator and O2 at home already).
[2016-07-06] MEDS: ENOXAPARIN SODIUM 40 MG/0.4 ML SYRINGE SUB-Q SCH (20:58)
[2016-07-06] MEDS: MELATONIN 3 MG TABLET PO SCH (20:59)
[2016-07-07] MEDS: ACETAMINOPHEN 325 MG TABLET PO PRN (01:53)
[2016-07-07] MEDS: ALBUTEROL/IPRATROPIUM 2.5/0.5 MG 3 ML/EACH DOSE NEB SCH ×2 (07:38→08:36)
[2016-07-07] MEDS: ESCITALOPRAM 20 MG TABLET PO SCH (09:04)
[2016-07-07] MEDS: GLIMEPIRIDE 1 MG TABLET PO SCH (09:04)
[2016-07-07] MEDS: METOPROLOL TARTRATE 50 MG TABLET PO SCH (09:04)
[2016-07-07] MEDS: SITAGLIPTIN PHOSPHATE 100 MG TABLET PO SCH (09:04)
[2016-07-07] MEDS: DOCUSATE SODIUM 100 MG CAPSULE PO SCH (09:05)
[2016-07-07] MEDS: AMLODIPINE BESYLATE 5 MG TABLET PO SCH (09:05)
[2016-07-07] MEDS: MONTELUKAST SODIUM 10 MG TABLET PO SCH (09:05)
[2016-07-07] MEDS: ASPIRIN (ENTERIC COATED) 325 MG TABLET.EC PO SCH (09:05)
[2016-07-07] MEDS: ISOSORBIDE MONONITRATE 60 MG TAB.SR PO SCH (09:05)
[2016-07-07] MEDS ORDERED: PUMP TUBING ONE (10:58)
[2016-07-07] MEDS ORDERED: CEFTRIAXONE 1 GRAM DUPLEX 1 G in Premix (D5W) 50 ml 1 EACH IV SCH (11:00)
[2016-07-07 11:47] VITALS: BP 123/78
--- NOTE | 2016-07-09 13:50 | DS ---
WILLOW RAHMAN [id number] ADMIT DATE: 07/03/2016 DISCHARGE DATE: 07/07/2016 ADMIT DIAGNOSES: 1. Community acquired pneumonia. 2. Acute on chronic renal failure with increased O2 requirement above her baseline. 3. Obstructive sleep apnea at baseline. 4. Morbid obesity complicating all care. OTHER CHRONIC MEDICAL PROBLEMS: Includin. Chronic coronary artery disease with chronic angina. 2. Diabetes. 3. Hypertension at baseline. DISCHARGE DIAGNOSES: 5. Community acquired pneumonia. 6. Acute on chronic renal failure with increased O2 requirement above her baseline. 7. Obstructive sleep apnea at baseline. 8. Morbid obesity complicating all care. OTHER CHRONIC MEDICAL PROBLEMS: Includin. Chronic coronary artery disease with chronic angina. 5. Diabetes. 6. Hypertension at baseline. LABORATORY DATA: All cultures remained negative. ADMIT HISTORY AND PHYSICAL: Please see Dr. Castro's note for details. Ms. Rahman is a 60-year-old female who presented to our emergency room with about a 1 week history of cough. She had been treated with a Z-Lorne as an outpatient the previous week with no improvement. In the emergency room, she was worked up and found to have evidence of a left sided pneumonia as well as increased hypoxia over her baseline. She was admitted to the Hospitalist service for further treatment. HOSPITAL COURSE: She was admitted and started Rocephin and azithromycin as well as supportive care. She did have significant oxygen requirements as well as her usual CPAP requirement at night. This did slowly improve. By the day of discharge, she was feeling very well and very anxious to go home. She had actually been feeling well for 48 hours. However, she did still have a bit of an O2 requirement above what her reported baseline is. It is suspected that this is actually her probably true baseline. She does seem to require 2 L of oxygen throughout the day to maintain saturations in the low 90s. She subjectively otherwise is feeling well. Cultures remained negative. It was elected to discharge her home with plans for close outpatient follow up. DISCHARGE MEDICATIONS: Cefdinir 300 mg by mouth twice a day times 7 more days. All other medications as prior to admit as follows: 1. Albuterol MDI 1 to 2 puffs inhaled every 4 hours as needed. 2. Sudafed 30 mg by mouth every 6 hours as needed. 3. Metformin 100 mg by mouth twice a day. 4. Nitroglycerin 0.4 mg sublingual every 5 minutes as needed. 5. Amlodipine 10 mg by mouth every day. 6. Aspirin 325 by mouth every day. 7. Lexapro 20 mg by mouth every day. 8. Amaryl 1 mg by mouth every morning 9. Isosorbide mononitrate 120 mg by mouth twice a day. 10. Metoprolol 50 mg by mouth every day. 11. Singulair 10 mg by mouth every day. 12. Januvia 100 mg by mouth every day. DISCHARGE FOLLOW UP: With Dr. Zaki Hayes on Sunday for a recheck sooner as needed. She will increase her oxygen usage to use it throughout the day and not just at night. N KH/tye Cc: Zaki Hayes MD
== END 2016-07-07 12:30 | disposition home health service (06) | DRG 194 ==
LOC: ED 15:09 → ICU 17:56 → MS 07-05 18:37
PROVIDERS: ADMIT Family Medicine; ATTEND Family Medicine
DX: J15.9 Unspecified bacterial pneumonia (principal); N17.9 Acute kidney failure, unspecified; R09.02 Hypoxemia; G47.33 Obstructive sleep apnea (adult) (pediatric); E66.01 Morbid (severe) obesity due to excess calories; I25.10 Atherosclerotic heart disease of native coronary artery without angina pectoris; E11.9 Type 2 diabetes mellitus without complications; I10 Essential (primary) hypertension; J45.909 Unspecified asthma, uncomplicated; M54.9 Dorsalgia, unspecified; M54.2 Cervicalgia; G89.29 Other chronic pain